=== PATIENT | female | born 1940 | race Caucasian/White ===

== ENCOUNTER 2024-09-03 05:10 | Emergency (ER) | payer MEDICARE, SELFPAY ==
[2024-09-03 05:12] VITALS: BP 185/86; BP 189/86; PULSE 86; RESP 16; TEMP 36.6; O2SAT 97
[2024-09-03 05:14] VITALS: PULSE 90; RESP 22; O2SAT 97; BMI 18.1
--- NOTE | 2024-09-03 05:44 | EDRME_ITS ---
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 Will initiate basic COPD work-up and treat with combination of [id number] and mild sedative. No other concerns or complaints expressed at this time.
--- NOTE | 2024-09-03 05:48 | XR_ITS ---
Examination: AP chest single view TECHNIQUE: AP portable upright chest single view Date and time: September 03, 2024, 0603 hours Comparison December 23, 2023 INDICATIONS: Onset shortness of breath today FINDINGS: No significant cardiac enlargement. Mild vascular congestion. Accentuation of basilar bronchovascular markings. No lobar pneumonia or pulmonary edema. Prominent osteopenia IMPRESSION: Basilar bronchitis pattern
--- NOTE | 2024-09-03 05:48 | EKG_ITS ---
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
[2024-09-03] MEDS: LORazepam 2 MG/ML VIAL 0.5 MG IVP (06:00)
[2024-09-03 06:07] LABS: Basophils # (Auto) 0.1 Thou/mm3 (0.0-0.2); Basophils % (Auto) 1 % (0-2.5); Eosinophils # (Auto) 0.1 Thou/mm3 (0.0-0.5); Eosinophils % (Auto) 0 % (0-10); Hematocrit 40.7 % (36.0-46.0); Hemoglobin 13.8 g/dL (12.0-16.0); Immature Granulocytes Auto 0.04 Thou/mm3 (0.00-0.00); Lymphocytes # (Auto) 2.7 Thou/mm3 (1.0-4.8); Lymphocytes % (Auto) 23 % (10-50); Mean Corpuscular HGB Conc 33.9 g/dl (31.0-37.0); Mean Corpuscular Hemoglobin 30.9 pg (25.0-35.0); Mean Corpuscular Volume 91 fL (80-100); Monocytes # (Auto) 1.2 Thou/mm3 (0.0-0.8); Monocytes % (Auto) 11 % (0-12); Neutrophils # (Auto) 7.4 Thou/mm3 (1.8-7.7); Neutrophils % (Auto) 65 % (37-80); Nucleated Red Blood Cell # 0.00 Thou/mm3 (0.00-0.00); Nucleated Red Blood Cell % 0 /100 WBC (0); Platelet Count 290 Thou/mm3 (140-440); RDW Standard Deviation 45.8 fL (36.4-46.3); Red Blood Count 4.46 Miln/mm3 (4.00-5.20); White Blood Count 11.4 Thou/mm3 (3.6-11.0)
[2024-09-03 06:22] LABS: Alanine Aminotransferase 18 U/L (10-49); Albumin, Serum 4.5 gm/dL (3.4-4.8); Albumin/Globulin Ratio 1.7 (1.2-2.2); Alkaline Phosphatase 87 U/L (46-116); Anion Gap 9 (7-16); Aspartate Amino Transferase 23 U/L (0-34); BUN/Creatinine Ratio 19 Ratio (12-20); Bilirubin,Total 0.5 mg/dL (0.3-1.2); Blood Urea Nitrogen 17 mg/dL (9-23); Calcium 9.8 mg/dL (8.3-10.6); Calcium (Corrected) 9.8 mg/dL (8.5-10.1); Carbon Dioxide 31.1 mMol/L (20.0-31.0); Chloride 105 mMol/L (98-107); Creatinine (Component) 0.9 mg/dL (0.6-1.3); Estimated Creatinine Clearance 34.1 mL/min (>60); Globulin 2.6 gm/dL (2.3-3.5); Glucose 99 mg/dL (74-106); Magnesium 2.0 mg/dL (1.6-2.6); Osmolality,Calculated 290 (275-295); Potassium 3.8 mMol/L (3.4-5.1); Sodium 145 mMol/L (136-145); Total Protein 7.1 gm/dL (5.7-8.2); Troponin I < 0.020 ng/mL (0.0-0.045); eGFR > 60 See Note
[2024-09-03 06:38] LABS: B-Type Natriuretic Peptide 430 pg/mL (0-100)
--- NOTE | 2024-09-03 06:40 | PD.EDADULT ---
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 Will initiate basic COPD work-up and treat with combination of [id number] and mild sedative. No other concerns or complaints expressed at this time. Related Data Previous Rx's ?Medication ?Instructions ?Recorded fluconazole 100 mg tablet 400 mg (4 x 100 mg) PO QDAY #0 tabs 09/26/23 hydroxyzine HCl 25 mg tablet 50 mg (2 x 25 mg) PO HS #30 tabs 09/26/23 Held on 12/24/23. Instructions: Resume on 12/31/23. Hold hydroxyzine, follow-up with PCP 1 week after discharge before restarting. ipratropium bromide 0.02 % 0.5 mg (2.5 mL) INH Q4HRRT #0 mL 09/26/23 solution for inhalation levalbuterol HCl 1.25 mg/3 mL 1.25 mg (3 mL) inhalation Q6HR #0 09/26/23 solution for nebulization mL metoprolol succinate 50 mg 50 mg PO QDAY #30 tabs 09/26/23 tablet,extended release 24 hr Allergies Allergy/AdvReac Type Severity Reaction Status Date / Time hydrocodone Allergy Severe Hallucinati Verified 04/07/23 08:00 ng oxycodone Allergy Severe Hallucinati Verified 04/07/23 08:00 ng ED Exam Narrative Physical exam: Physical Exam GENERAL: NAD, AAOx3 HEENT: Moist mucosa. Eyes open, symmetrical, & clear CARDIO: Heart RRR, no obvious murmurs PULM: No noted coughing/dyspnea CTA B/L, no R/W/R GI: Abdomen soft, nondistended, no pain on palpation. BSx4 SKIN/MSK/EXT: mild cuts on lower extremities , no pain on palpation. Pedal pulses present B/L NEURO: AAOx3, no focal neuro deficits, able to move all 4 extremities Course Course Course Narrative: see [facility] Quality Measures none Orders Category Date Time Status EKG (ED ONLY) *Do not use* NOW Care 09/03/24 05:48 Completed Miscellaneous Nursing Order NOW Care 09/03/24 07:10 Completed EKG (ED Only) Stat Exams 09/03/24 05:48 Draft XR chest 1V portable Stat Exams 09/03/24 05:48 Completed B-Type Natriuretic Peptide Stat Lab 09/03/24 05:54 Completed CBC Stat Lab 09/03/24 05:54 Completed Comprehensive Metabolic Panel Stat Lab 09/03/24 05:54 Completed Magnesium Stat Lab 09/03/24 05:54 Completed Troponin I Stat Lab 09/03/24 05:54 Completed Urinalysis Stat Lab 09/03/24 07:39 Completed LORazepam [Ativan Inj] Med 09/03/24 05:48 Discontinued 0.5 mg IVP X1 ONE Vital Signs Vital signs: Vital Signs Temperature 97.9 F 09/03/24 05:12 Pulse Rate 86 09/03/24 05:12 Respiratory Rate 16 09/03/24 05:12 Blood Pressure 189/86 H 09/03/24 05:12 Pulse Oximetry (%) 97 09/03/24 05:12 Oxygen Delivery Method Room Air 09/03/24 05:12 Discharge Plan Plan Patient Disposition: HOME (Self Care) Prescriptions/Referrals Prescriptions/Med Rec: No Action fluconazole 100 mg Tablet 400 mg PO QDAY Qty: 0 0RF levalbuterol HCl 1.25 mg/3 mL solution for nebulization 1.25 mg inhalation Q6HR Qty: 0 0RF ipratropium bromide 0.02 % Solution 0.5 mg INH Q4HRRT Qty: 0 0RF metoprolol succinate 50 mg tablet extended release 24 hr 50 mg PO QDAY Qty: 30 0RF hydroxyzine HCl 25 mg Tablet 50 mg PO HS Qty: 30 0RF Referrals: Arminda Ibrahim DO [Primary Care Provider] - In 1 week Problem List Clinical Impression: Allergic rhinitis, Asthma with exacerbation, Anxiety, COPD (chronic obstructive pulmonary disease) Patient/Caregiver Discharge Instructions Additional Instructions: Follow with your primary care physician within 1 week of discharge Please stop taking your prednisone at this time as this could be contributing to your symptoms Should any symptoms recur or worsen patient is instructed to return to the ED. Print Language: Afghan Stand Alone Forms: [employer] Award Info., Patient Portal Info Letter Attestation Attestation I, Michale De La Rosa MD, have reviewed the history, exam, and assessment of the patient. I have evaluated the patient independently and agree with the plan of care documented by [ ]. All diagnostic studies were reviewed and discussed. I confirm the diagnosis as documented by the Resident. I was present during the Medical Decision Making for this patient. The patient's plan of care was created between myself and the Resident and consistent with our discussion of the patient's case. Patient has no objective acute problems today. Her lungs were clear. Chest x-ray was normal. It is unclear if her agitation anxiety is worse because of the prednisone or is from an ongoing problem which the son reported later on is having panic attacks over the past 5 years especially when she feels short of breath. And we patient was advised to stop her prednisone call her doctor for reevaluation and return if getting worse. Is important to note that the son who came in clearly states the patient has recurring panic attacks. Patient has some diminished capacity to have a discussion about this and often repeats the same thing about what she ate and not sleeping well. MDM Narrative MDM hospital course: 84 y/o F with PMHx of Asthma/COPD who presented to the ED due to shortness of breath. Patient states shes been having SOB and wheezing around 4-5 days ago. She saw her doctor and was given steroid medication around 3 days ago and states she has not been able to sleep since then. She endorses she still feels jittery and shaky with more shortness of breath. On examination patient was CTA B/L. Previous ED provider gave 1 dose of ativan and patient states feeling much better. 0724: Ordered walking O2 test Patient is able to ambulate with O2 test and not desaturating and family is able to pick the patient from the ER patient can be safely discharged. Clinical Information Provided by patient Medical Records Reviewed [facility] Chronic Illness/Social Conditions which may negatively complicate care or outcome(s)-explain: None or not applicable Lab Interpretation Lab(s) interpretation(s): mild leukocytosis, CMP unremarkable, slight BNP elevation but not signs of heart failure Imaging Imaging interpretation: none Medication Administration(s) Medication Administration History Discontinued Medications Lorazepam (Lorazepam 2 Mg/Ml Vial) 0.5 mg IVP X1 ONE Stop: 09/03/24 05:49 Last Admin: 09/03/24 06:00 Dose: 0.5 mg Documented By: ROBERTO see above Diagnosis Differential diagnosis: anxiety, COPD exacerbation, Pneumonia Dispositon Disposition: Discharge Home
[2024-09-03 07:00] VITALS: BP 165/85; PULSE 98; RESP 19; TEMP 36.6; O2SAT 98
--- NOTE | 2024-09-03 07:34 | PC.NURSE ---
pt ambulated to restroom on O2 sat monitor. O2 sats remained above 95%. pt tolerated well.
[2024-09-03 07:44] LABS: Collection Type, Urine Clean Catch; Squamous Epithelial Cell,Urine 0 /hpf (0-5)
[2024-09-03 07:48] LABS: Bilirubin,Urine Negative (Negative); Blood,Urine Negative (Negative); Clarity,Urine Clear (Clear/Hazy); Color,Urine Colorless (Lt Yel-Yel); Glucose, Urine Negative (Negative); Ketones,Urine Negative (Negative); Leukocyte Esterase,Urine Negative (Negative); Nitrite,Urine Negative (Negative); PH,Urine 7.5 (5.0-7.0); Protein,Urine Negative (Neg - Trace); RBC,Urine 1 /hpf (0-3); Specific Gravity,Urine 1.008 (1.001-1.035); Urobilinogen,Urine Negative mg/dL (0.0-1.0); WBC,Urine 1 /hpf (0-5)
[2024-09-03 08:00] VITALS: BP 153/71; PULSE 56; RESP 18; TEMP 36.9; O2SAT 98
[2024-09-03 09:52] VITALS: PULSE 62; RESP 18; TEMP 36.6; O2SAT 98
== END 2024-09-03 09:53 | disposition home or self-care (01) ==
PROVIDERS: Emergency Medicine; Emergency Provider Student in an Organized Health Care Education/Training Program; PCP Internal Medicine
DX: J45.901 Unspecified asthma with (acute) exacerbation (principal); F41.9 Anxiety disorder, unspecified; J44.9 Chronic obstructive pulmonary disease, unspecified; R94.31 Abnormal electrocardiogram [ECG] [EKG]
CPT/HCPCS: 36415; 71045; 80053; 81001; 83735; 83880; 84484; 85025; 87400; 87811; 93005; 96374; 99284; J2060